=== PATIENT | female | born 1950 | race Caucasian/White ===

== ENCOUNTER 2016-08-21 14:33 | Emergency (ER) | payer OTHER ==
[~2016-08-21] VITALS: Ht 162.6 cm; Wt 66.8 kg
[~2016-08-21 14:33] MED LIST: ACTOS PO; ALDACTONE 25MG25 MG PO; ALLOPURINOL300 MG PO; ATENOLOL50 MG PO; AVAPRO300 M1 PO; CENTRUM SILVER1 TA1 PO; CIPRO 500MG TA500 MG PO; COLACE 100100 MG/CAP PO; DESYREL 100MG100 MG PO; FERROUS SU325 MG/TAB PO; GEMCOR600 MG PO; JANUVIA50 MG PO; LEVOTHYROXINE0.1 MG PO; MET PO; NORCO 325 MG-51 TAB PO; NORVASC 10MG10 MG PO; PAXIL 10MG10 MG PO; PERCOCET 325 MG1 TA2 PO; PRIL40 PO; PYRIDIUM200 M1 PO; SODIUM BICARB PO; SODIUM BICARBON1 POW; SYNTHROID 0.0.025 MG PO; VITAMIN B12 PO; VITAMINB INJ; VITRON C PO; XANAX 1MG1 MG PO; ZOFRAN 4MG T4 MG/TAB PO; ZOFRAN ODT4 MG PO; ZYLOPRIM 300MG300 MG PO
[2016-08-21 14:43] VITALS: TEMP 98.6
[2016-08-21 15:31] LABS: PH 5 (5-8); SQUAMOUS EPITHELIAL 0-2 /hpf; URINE APPEARANCE Clear; URINE BACTERIA None Seen /hpf; URINE BILIRUBIN Negative (NEGATIVE); URINE BLOOD 1+ (NEGATIVE); URINE COLOR Yellow; URINE GLUCOSE Negative (NEGATIVE); URINE KETONE Negative (NEGATIVE); URINE RBC 0-2 /hpf; URINE UROBILINOGEN Negative (NEGATIVE); URINE WBC 0-2 /hpf
[2016-08-21 15:41] LABS: BASO # 0.1 (0.0-0.2); BASO % 0.9 % (0.0-2.0); EOS # 0.4 (0.0-0.7); EOS % 4.6 % (0-4.0); GRAN # 5.3 (1.4-6.5); GRAN % 54.5 % (42.2-75.2); LYMPH # 3.3 (1.2-3.4); LYMPH % 33.7 % (20.0-51.0); MEAN CELL VOLUME 90 fl (80.0-100.0); MEAN CORPUSCULAR HGB CONC 31 g/dl (33.0-37.0); MEAN PLATELET VOLUME 12.2 fl (7.4-10.4); MONO # 0.6 (0.1-0.6); PLATELET COUNT 243 K/mm3 (130-400); RED BLOOD COUNT 3.63 M/mm3 (4.10-5.30); REDCELL DISTRIBUTION WIDTH-CV 12.8 % (11.5-14.5); WHITE BLOOD COUNT 9.6 K/mm3 (4.8-10.8)
[2016-08-21 15:43] LABS: HEMATOCRIT 32.8 % (37.0-47.0); HEMOGLOBIN 10.3 g/dl (12.5-16.0); MEAN CORPUSCULAR HEMOGLOBIN 28 pg (27.0-31.0)
[2016-08-21 15:48] LABS: ADJUSTED CALCIUM 8.6 mg/dL (8.4-10.2); BILIRUBIN,TOTAL 0.4 mg/dL (0.0-1.0); CALCIUM 8.6 mg/dL (8.4-10.2); CREATININE, serum 1.39 mg/dL (0.52-1.25); POTASSIUM 4.7 mmol/L (3.4-5.0); TOTAL PROTEIN 7.2 gm/dL (6.4-8.2)
[2016-08-21] MEDS ORDERED: ULTRAM 50MG TAB50 MG PO (16:22)
[2016-08-21] MEDS ORDERED: ZOFRAN8 MG PO (16:22)
[2016-08-21] MEDS ORDERED: PERCOCET 325 MG1 TA2 PO (16:22)
[2016-08-21] MEDS ORDERED: FLOMAX 0.40.4 MG/CAP PO (16:22)
[2016-08-21 16:47] VITALS: BP 137/62; PULSE 54
== END 2016-08-21 16:50 | disposition home or self-care (01) ==
LOC: COL.ER 14:33
PROVIDERS: Emergency Medicine
DX: N20.1 Calculus of ureter (principal); Z87.442 Personal history of urinary calculi
CPT/HCPCS: J1170; J1885; J2405; J7030

== ENCOUNTER → 2016-10-28 | Outpatient (CLI) | payer OTHER ==
[~2016-10-28] MED LIST changes: +FLOMAX 0.40.4 MG/CAP PO; +ULTRAM 50MG TAB50 MG PO; +ZOFRAN8 MG PO
== END ==
LOC: MC.RAD 14:00
DX: Z12.31 Encounter for screening mammogram for malignant neoplasm of breast (principal)

== ENCOUNTER 2017-01-27 10:57 | Inpatient (IN) | payer MEDICARE, OTHER ==
[~2017-01-27] VITALS: Ht 162.6 cm; Wt 63.5 kg
[2017-01-27 12:42] LABS: BASO # 0.1 (0.0-0.2); BASO % 0.6 % (0.0-2.0); EOS # 0.1 (0.0-0.7); EOS % 0.7 % (0-4.0); GRAN # 11.3 (1.4-6.5); LYMPH # 1.4 (1.2-3.4); LYMPH % 10.6 % (20.0-51.0); MEAN CELL VOLUME 92 fl (80.0-100.0); MEAN CORPUSCULAR HGB CONC 31 g/dl (33.0-37.0); MEAN PLATELET VOLUME 11.7 fl (7.4-10.4); MONO # 0.5 (0.1-0.6); MONO % 3.7 % (1.7-9.3); PLATELET COUNT 240 K/mm3 (130-400); RED BLOOD COUNT 3.71 M/mm3 (4.10-5.30); WHITE BLOOD COUNT 13.5 K/mm3 (4.8-10.8)
[2017-01-27 12:47] LABS: HEMOGLOBIN 10.5 g/dl (12.5-16.0); MEAN CORPUSCULAR HEMOGLOBIN 28 pg (27.0-31.0)
[2017-01-27 12:49] LABS: INR 1.1 (0.8-3.0); PROTHROMBIN TIME 13.3 SECONDS (9.7-12.8)
[2017-01-27 12:54] LABS: ADJUSTED CALCIUM 9.1 mg/dL (8.4-10.2); BILIRUBIN,TOTAL 0.7 mg/dL (0.0-1.0); CALCIUM 9.1 mg/dL (8.4-10.2); CREATININE, serum 1.37 mg/dL (0.52-1.25); POTASSIUM 5.2 mmol/L (3.4-5.0); TOTAL PROTEIN 6.8 gm/dL (6.4-8.2)
[2017-01-27 13:20] LABS: COLLECTION METHOD CLEAN CATCH
[2017-01-27 13:33] LABS: MUCOUS Present /lpf; PH 5 (5-8); SQUAMOUS EPITHELIAL 0-2 /hpf; URINE APPEARANCE Clear; URINE BACTERIA None Seen /hpf; URINE BILIRUBIN Negative (NEGATIVE); URINE BLOOD Negative (NEGATIVE); URINE COLOR Yellow; URINE GLUCOSE Negative (NEGATIVE); URINE KETONE Negative (NEGATIVE); URINE LEUKOCYTE ESTERASE Negative (NEGATIVE); URINE PROTEIN(semi-quant) Negative (NEGATIVE); URINE RBC 0-2 /hpf; URINE UROBILINOGEN Negative (NEGATIVE); URINE WBC 0-2 /hpf
[2017-01-27 14:14] VITALS: BP 163/53; PULSE 53; TEMP 98.7
[2017-01-27] MEDS ORDERED: SODIUM BICARBO650 MG PO (14:48)
[2017-01-27] MEDS ORDERED: ACULAR 10 ML10 ML OU (14:50)
[2017-01-27] MEDS ORDERED: PREDFORTE5ML (14:50)
[2017-01-27] MEDS ORDERED: LOPID 600M600 MG/TAB PO (14:51)
[2017-01-27 17:43] VITALS: BP 133/51; PULSE 55; TEMP 98.6
[2017-01-27 21:25] VITALS: BP 137/44; PULSE 86; TEMP 98.7
[2017-01-28] VITALS (12 sets, daily range): BP systolic 105–142; BP diastolic 37–65; PULSE 55–70; TEMP 57–98.8
[2017-01-28 06:53] LABS: BASO % 0.4 % (0.0-2.0); EOS # 0.7 (0.0-0.7); EOS % 6.8 % (0-4.0); GRAN # 6.6 (1.4-6.5); GRAN % 62.2 % (42.2-75.2); LYMPH # 2.4 (1.2-3.4); LYMPH % 22.5 % (20.0-51.0); MEAN CELL VOLUME 94 fl (80.0-100.0); MEAN CORPUSCULAR HGB CONC 31 g/dl (33.0-37.0); MEAN PLATELET VOLUME 12.4 fl (7.4-10.4); MONO # 0.8 (0.1-0.6); MONO % 7.8 % (1.7-9.3); PLATELET COUNT 229 K/mm3 (130-400); RED BLOOD COUNT 3.28 M/mm3 (4.10-5.30); WHITE BLOOD COUNT 10.6 K/mm3 (4.8-10.8)
[2017-01-28 06:57] LABS: HEMATOCRIT 30.8 % (37.0-47.0); HEMOGLOBIN 9.4 g/dl (12.5-16.0); MEAN CORPUSCULAR HEMOGLOBIN 29 pg (27.0-31.0)
[2017-01-28 06:59] LABS: CALCIUM 8.7 mg/dL (8.4-10.2); CREATININE, serum 1.89 mg/dL (0.52-1.25)
[2017-01-29 01:45] VITALS: BP 115/44; PULSE 61; TEMP 98
[2017-01-29 06:12] VITALS: BP 133/47; PULSE 79; TEMP 99.3
[2017-01-29 06:14] LABS: HEMATOCRIT 28.8 % (37.0-47.0); HEMOGLOBIN 8.7 g/dl (12.5-16.0)
[2017-01-29 10:11] VITALS: BP 159/50; PULSE 65; TEMP 98.8
[2017-01-29 13:07] VITALS: BP 161/52; PULSE 70; TEMP 98.1
[2017-01-29 17:11] VITALS: BP 138/46; PULSE 72; TEMP 97.4
[2017-01-29 21:53] VITALS: BP 148/52; BP 86/55; PULSE 58; TEMP 98.2
[2017-01-30 01:26] VITALS: BP 141/49; PULSE 62; TEMP 98
[2017-01-30 05:35] VITALS: BP 146/51; PULSE 58; TEMP 98.2
[2017-01-30 07:49] LABS: HEMATOCRIT 26.9 % (37.0-47.0); HEMOGLOBIN 8.3 g/dl (12.5-16.0)
[2017-01-30 09:30] VITALS: BP 120/42; PULSE 70; TEMP 97.6
[2017-01-30 17:41] VITALS: BP 132/56; PULSE 58; TEMP 98
[2017-01-30 21:59] VITALS: BP 127/48; PULSE 55; TEMP 98.5
[2017-01-31 05:16] VITALS: BP 150/52; PULSE 62; TEMP 98.5
[2017-01-31 07:40] LABS: HEMATOCRIT 29.2 % (37.0-47.0)
[2017-01-31 09:40] VITALS: BP 140/50; PULSE 55; TEMP 97.6
[2017-01-31] MEDS ORDERED: NORCO 325 MG-51 TAB PO (13:15)
[2017-01-31] MEDS ORDERED: XARELTO10 MG PO (13:15)
[2017-01-31] MEDS ORDERED: OS-CAL 500 + D1 TAB PO (13:16)
[2017-01-31 14:22] VITALS: BP 138/50; PULSE 55; TEMP 97.4
== END 2017-01-31 14:57 | DRG 481 ==
LOC: COL.ER 10:57 → SURG 12:36
PROVIDERS: Emergency Medicine; Orthopaedic Surgery; Physician Assistant
PROC: 0QH706Z Insertion of Intramedullary Internal Fixation Device into Left Upper Femur, Open Approach (ICD-10-PCS; principal; 2017-01-28 08:00)
DX: M80.052A Age-related osteoporosis with current pathological fracture, left femur, initial encounter for fracture (principal); D62 Acute posthemorrhagic anemia; W18.30XA Fall on same level, unspecified, initial encounter; I12.9 Hypertensive chronic kidney disease with stage 1 through stage 4 chronic kidney disease, or unspecified chronic kidney disease; E11.22 Type 2 diabetes mellitus with diabetic chronic kidney disease; N18.3 Chronic kidney disease, stage 3 (moderate); Z98.84 Bariatric surgery status; D50.0 Iron deficiency anemia secondary to blood loss (chronic)
CPT/HCPCS: 99232-AI; A9284; C1713; J0690; J1815; J2250; J2270; J2405; J2704; J7030

== ENCOUNTER 2017-01-31 14:22 | Inpatient (IN) | payer MEDICARE, OTHER ==
[~2017-01-31] VITALS: Ht 162.6 cm; Wt 68.6 kg
[~2017-01-31 14:22] MED LIST changes: +ACULAR 10 ML10 ML OU; +LOPID 600M600 MG/TAB PO; +OS-CAL 500 + D1 TAB PO; +PREDFORTE5ML; +SODIUM BICARBO650 MG PO; +XARELTO10 MG PO
[2017-01-31 15:12] VITALS: BP 146/54; PULSE 66; TEMP 98
[2017-01-31 17:01] VITALS: BP 146/54; PULSE 66; TEMP 98
[2017-02-01 05:05] VITALS: BP 136/51; PULSE 57; TEMP 98.2
[2017-02-01 18:00] VITALS: BP 145/59; PULSE 70; TEMP 98.4
[2017-02-02 04:45] VITALS: BP 136/52; PULSE 46; TEMP 97.9
[2017-02-02 16:44] VITALS: BP 123/49; PULSE 52; TEMP 98.2
[2017-02-03 05:55] VITALS: BP 143/42; PULSE 59; TEMP 98.2
[2017-02-03] MEDS ORDERED: XARELTO10 MG PO (08:50)
[2017-02-03] MEDS ORDERED: TYLENOL 325MG325 MG PO (08:52)
[2017-02-03] MEDS ORDERED: NORCO 325 MG-51 TAB PO (08:59)
[2017-02-03 16:07] VITALS: BP 129/47; PULSE 53; TEMP 98.2
[2017-02-04 06:20] VITALS: BP 124/47; PULSE 49; TEMP 98.5
== END 2017-02-04 10:35 | disposition home or self-care (01) | DRG 561 ==
DX: M80.052D Age-related osteoporosis with current pathological fracture, left femur, subsequent encounter for fracture with routine healing (principal); W18.30XD Fall on same level, unspecified, subsequent encounter; I12.9 Hypertensive chronic kidney disease with stage 1 through stage 4 chronic kidney disease, or unspecified chronic kidney disease; N18.3 Chronic kidney disease, stage 3 (moderate); E11.22 Type 2 diabetes mellitus with diabetic chronic kidney disease
CPT/HCPCS: 99222-AI; 99232-AI; 99239

== ENCOUNTER 2017-04-03 14:45 | Outpatient (RCR) | payer MEDICARE, OTHER ==
[~2017-04-03 14:45] MED LIST changes: +TYLENOL 325MG325 MG PO
== END 2017-05-10 ==
LOC: MKS.ESL.PT
DX: S72.002D Fracture of unspecified part of neck of left femur, subsequent encounter for closed fracture with routine healing (principal); Z98.890 Other specified postprocedural states
CPT/HCPCS: G0283-GP; G8978-GP; G8979-GP; G8980-GP

== ENCOUNTER 2017-06-25 23:06 | Emergency (ER) | payer MEDICARE, OTHER ==
[~2017-06-25] VITALS: Ht 162.6 cm; Wt 63.6 kg
[2017-06-25 23:08] VITALS: BP 172/77; TEMP 97
[2017-06-25 23:42] LABS: COLLECTION METHOD CLEAN CATCH
[2017-06-25 23:51] LABS: MUCOUS Present /lpf; PH 5 (5-8); SQUAMOUS EPITHELIAL 0-2 /hpf; URINE APPEARANCE Hazy; URINE BACTERIA None Seen /hpf; URINE BILIRUBIN Negative (NEGATIVE); URINE BLOOD 3+ (NEGATIVE); URINE COLOR Yellow; URINE GLUCOSE Negative (NEGATIVE); URINE KETONE Negative (NEGATIVE); URINE LEUKOCYTE ESTERASE Negative (NEGATIVE); URINE NITRATE Negative (NEGATIVE); URINE PROTEIN(semi-quant) 1+ (NEGATIVE); URINE RBC >50 /hpf; URINE UROBILINOGEN Negative (NEGATIVE)
[2017-06-26] MEDS ORDERED: NORCO 325 MG-51 TAB PO (02:00)
[2017-06-26 02:30] VITALS: PULSE 63
== END 2017-06-26 02:30 | disposition home or self-care (01) ==
LOC: COL.ER 23:06
PROVIDERS: Nurse Practitioner Primary Care
DX: N20.0 Calculus of kidney (principal); I10 Essential (primary) hypertension; E03.9 Hypothyroidism, unspecified; Z87.442 Personal history of urinary calculi; Z90.49 Acquired absence of other specified parts of digestive tract; Z98.84 Bariatric surgery status; Z79.52 Long term (current) use of systemic steroids
CPT/HCPCS: J2270; J7030

== ENCOUNTER → 2017-11-24 | Outpatient (CLI) | payer MEDICARE, OTHER | LOC: MC.RAD 13:18 | DX: Z12.31 Encounter for screening mammogram for malignant neoplasm of breast (principal) ==

== ENCOUNTER 2018-09-25 09:05 | Outpatient (CLI) | payer MEDICARE, OTHER ==
[~2018-09-25] VITALS: Ht 162.6 cm; Wt 67.4 kg
[2018-09-25 09:16] VITALS: BP 125/49; PULSE 52; TEMP 97.9
== END 2018-09-25 09:48 | disposition home or self-care (01) ==
LOC: EUO 09:05
DX: M81.0 Age-related osteoporosis without current pathological fracture (principal)
CPT/HCPCS: J0897

== ENCOUNTER → 2019-01-08 | Outpatient (CLI) | payer MEDICARE, OTHER | LOC: MC.RAD 09:45 | DX: Z12.31 Encounter for screening mammogram for malignant neoplasm of breast (principal) ==

== ENCOUNTER 2019-04-18 11:07 | Outpatient (CLI) | payer MEDICARE, OTHER ==
[~2019-04-18] VITALS: Ht 162.6 cm; Wt 70.3 kg
[2019-04-18 11:39] VITALS: BP 101/59; PULSE 59; TEMP 98.5
== END 2019-04-18 11:46 | disposition home or self-care (01) ==
LOC: EUO 11:07
DX: M81.0 Age-related osteoporosis without current pathological fracture (principal)
CPT/HCPCS: J0897

== ENCOUNTER 2019-10-22 09:46 | Outpatient (CLI) | payer MEDICARE, OTHER ==
[~2019-10-22] VITALS: Ht 162.6 cm; Wt 65.8 kg
[2019-10-22 10:04] VITALS: BP 129/72; PULSE 53; TEMP 98.1
== END 2019-10-22 10:49 | disposition home or self-care (01) ==
LOC: EUO 09:46
DX: M81.0 Age-related osteoporosis without current pathological fracture (principal)
CPT/HCPCS: J0897

== ENCOUNTER → 2020-02-20 | Outpatient (CLI) | payer MEDICARE, OTHER | LOC: MC.RAD 16:44 | DX: Z12.31 Encounter for screening mammogram for malignant neoplasm of breast (principal) ==

== ENCOUNTER 2020-04-24 15:38 | Outpatient (CLI) | payer MEDICARE, OTHER ==
[~2020-04-24] VITALS: Ht 162.6 cm; Wt 65.9 kg
[~2020-04-24 15:38] MED LIST changes: -PAXIL 10MG10 MG PO; +PAXIL40 MG PO
[2020-04-24 16:27] VITALS: BP 110/58; PULSE 67; TEMP 98
== END 2020-04-24 17:32 | disposition home or self-care (01) ==
LOC: EUO
DX: M81.0 Age-related osteoporosis without current pathological fracture (principal)
CPT/HCPCS: J0897

== ENCOUNTER 2020-10-30 16:09 | Outpatient (CLI) | payer MEDICARE, OTHER ==
[~2020-10-30] VITALS: Ht 162.6 cm; Wt 62.5 kg
[2020-10-30 16:21] VITALS: BP 171/62; PULSE 60; TEMP 97.8
== END 2020-10-30 16:42 | disposition home or self-care (01) ==
LOC: EUO 16:09
DX: M81.0 Age-related osteoporosis without current pathological fracture (principal)
CPT/HCPCS: J0897

== ENCOUNTER 2021-04-30 14:56 | Outpatient (CLI) | payer MEDICARE, OTHER ==
[~2021-04-30] VITALS: Ht 162.6 cm; Wt 67.0 kg
[2021-04-30] MEDS ORDERED: GLUCOPHAGE500 MG/TAB PO (15:09)
[2021-04-30 15:10] VITALS: BP 127/68; PULSE 60; TEMP 98
== END 2021-04-30 15:38 | disposition home or self-care (01) ==
LOC: EUO 14:56
DX: M81.0 Age-related osteoporosis without current pathological fracture (principal)
CPT/HCPCS: J0897

== ENCOUNTER 2021-06-29 15:06 | Inpatient (IN) | payer MEDICARE, OTHER ==
[~2021-06-29] VITALS: Ht 160 cm; Wt 65.9 kg
[~2021-06-29 15:06] MED LIST changes: +GLUCOPHAGE500 MG/TAB PO
[2021-06-29 16:41] LABS: BASO # 0.1 K/mm3 (0.0-0.2); BASO % 1.1 % (0.0-2.0); EOS # 0.6 K/mm3 (0.0-0.7); EOS % 5.2 % (0.0-4.0); GRAN # 7.8 K/mm3 (1.4-6.5); GRAN % 65.2 % (42.2-75.2); HEMATOCRIT 39.8 % (37.0-47.0); HEMOGLOBIN 12.9 g/dl (12.5-16.0); LYMPH # 2.7 K/mm3 (1.2-3.4); LYMPH % 22.4 % (20.0-51.0); MEAN CELL VOLUME 89 fl (80.0-100.0); MEAN CORPUSCULAR HEMOGLOBIN 29 pg (27-31); MEAN CORPUSCULAR HGB CONC 32 g/dl (33.0-37.0); MEAN PLATELET VOLUME 11.7 fl (7.4-10.4); MONO # 0.7 K/mm3 (0.1-0.6); MONO % 5.8 % (1.7-9.3); PLATELET COUNT 374 K/mm3 (130-400); RED BLOOD COUNT 4.45 M/mm3 (4.10-5.30); REDCELL DISTRIBUTION WIDTH-CV 14.8 % (11.5-14.5)
[2021-06-29 16:52] LABS: COLLECTION METHOD CLEAN CATCH
[2021-06-29 16:56] LABS: ALBUMIN 4.5 gm/dL (3.4-4.8); BILIRUBIN,TOTAL 0.4 mg/dL (0.2-1.2); CALCIUM 8.7 mg/dL (8.4-10.2); CREATININE, serum 1.85 mg/dL (0.57-1.11); POTASSIUM 4.2 mmol/L (3.5-4.5); TOTAL PROTEIN 8.8 gm/dL (6.2-8.1)
[2021-06-29 17:02] LABS: MUCOUS Present (NOT PRESENT); PH 5 (5-8); SQUAMOUS EPITHELIAL 0-2 /hpf (0-10); URINE APPEARANCE Hazy (CLEAR/HAZY); URINE BACTERIA Rare /hpf (NONE SEEN); URINE BILIRUBIN Negative (NEGATIVE); URINE BLOOD 3+ (NEGATIVE); URINE COLOR Yellow (YELLOW); URINE GLUCOSE Negative (NEGATIVE); URINE KETONE Negative (NEGATIVE); URINE LEUKOCYTE ESTERASE Negative (NEGATIVE); URINE NITRATE Negative (NEGATIVE); URINE PROTEIN(semi-quant) 1+ (NEGATIVE); URINE RBC >50 /hpf (0-2); URINE UROBILINOGEN Negative (NEGATIVE)
[2021-06-29 21:59] VITALS: BP 149/51; PULSE 52; TEMP 98
[2021-06-30 00:03] VITALS: BP 107/40; BP 116/42; PULSE 53; TEMP 97.7
--- NOTE | 2021-06-30 02:09 | NUR ---
PATIENT UP TO ROOM 349. ALERT AND ORIENTED. ASSESSMENT COMPLETED. PATIENT C/O MILD PAIN. PRN ORDER FOR MORPHINE GIVEN. PATIENT VOIDED CLEAR YELLOW URINE. IVF STARTED ALONG WITH IV ABX.
[2021-06-30 04:06] VITALS: BP 117/41; PULSE 51; TEMP 97.9
--- NOTE | 2021-06-30 04:54 | NUR ---
70 yo female admitted for further care and management of ureterolithiasis with possible sepsis of urinary source. ht 160 cm wt 65.9 kg SCr 1.85 with estimated CrCl ~25 ml/min half life 27.8 hr Plan: Will give an initial loading dose of vancomycin 1250 mg x1 (18.9 mg/kg); followed by a maintenance regimen of vancomycin 750 mg q24h to target a goal trough of 15-20 mcg/ml. Will follow patient's renal function, micro data, and vancomycin levels as indicated to assess for any necessary changes to regimen. Thank you for this dosing consult.
[2021-06-30 06:39] LABS: BILIRUBIN,TOTAL 0.3 mg/dL (0.2-1.2); CALCIUM 6.8 mg/dL (8.4-10.2); CREATININE, serum 1.46 mg/dL (0.57-1.11); TOTAL PROTEIN 5.8 gm/dL (6.2-8.1)
[2021-06-30 06:44] LABS: BASO # 0.1 K/mm3 (0.0-0.2); EOS # 0.7 K/mm3 (0.0-0.7); EOS % 6.6 % (0.0-4.0); GRAN # 5.5 K/mm3 (1.4-6.5); GRAN % 55.1 % (42.2-75.2); LYMPH % 29.8 % (20.0-51.0); MEAN CORPUSCULAR HGB CONC 31 g/dl (33.0-37.0); MEAN PLATELET VOLUME 11.8 fl (7.4-10.4); MONO # 0.7 K/mm3 (0.1-0.6); MONO % 7.3 % (1.7-9.3); PLATELET COUNT 297 K/mm3 (130-400); REDCELL DISTRIBUTION WIDTH-CV 14.6 % (11.5-14.5)
[2021-06-30 07:02] LABS: THYROID STIMULATING HORMONE 0.814 uIU/mL (0.350-4.940)
[2021-06-30 07:05] LABS: HEMOGLOBIN 9.5 g/dl (12.5-16.0); MEAN CELL VOLUME 94 fl (80.0-100.0); MEAN CORPUSCULAR HEMOGLOBIN 29 pg (27-31)
[2021-06-30 07:06] VITALS: BP 120/45; PULSE 57; TEMP 98.4
[2021-06-30 08:27] VITALS: BP 136/46; PULSE 51; TEMP 98.3
--- NOTE | 2021-06-30 11:24 | NUR ---
Ana: No christian preference Situation: [employer] stopped by room on rounds Background: PT has had a hard year. Lost her son in February and other tragedies. Assessment: PT doesn't feel like she can catch a break. [employer] talked with her for awhile. She appreciated the visit. Recommendation: [employer] will follow up as needed
[2021-06-30 11:55] VITALS: BP 136/46; PULSE 51; TEMP 98.3
--- NOTE | 2021-06-30 13:01 | NUR ---
Pt has voided and passed a stone. Notified OR and Dr Dick
--- NOTE | 2021-06-30 14:39 | NUR ---
Child Protective Services Social Worker met with patient to discuss discharge plan. Patient lives alone in [place] and sees Dr. Mccord for primary care. Patient obtains medications from [facility] with no difficulties and does not use any DME at home. Patient is independent with ADLS and plans to return home at time of discharge. Patient is a and her only child in February. Patient reports her brother, Sreekanth is her legal next of kin. Discharge Plan: Home
--- NOTE | 2021-06-30 15:30 | NUR ---
Dr Dick up to see pt, new orders wrote. Pt aware that she an eat and is currently ordering something to eat. Dr iDck will be back in to see pt later on today for possible discharge
[2021-06-30 15:37] VITALS: BP 143/48; PULSE 51; TEMP 98.3
[2021-06-30] MEDS ORDERED: OMNICEF 300MG300 MG PO (16:46)
[2021-06-30] MEDS ORDERED: ZOFRAN ODT4 MG PO (16:47)
[2021-06-30] MEDS ORDERED: ROXICODONE 55 MG/TAB PO (16:47)
--- NOTE | 2021-06-30 18:55 | NUR ---
Reviewed discharge instructions with pt to include her making the follow up appointment. Discussed pain medication as well as the antibiotic to include side affects. INT removed from left forarm/wrist and pt escorted out.
== END 2021-06-30 18:57 | disposition home or self-care (01) | DRG 872 ==
LOC: COL.ER 15:06 → SURG 19:45
PROVIDERS: Physician Assistant; ADMIT Internal Medicine
DX: A41.9 Sepsis, unspecified organism (principal); E87.2 Acidosis; N18.4 Chronic kidney disease, stage 4 (severe); I12.9 Hypertensive chronic kidney disease with stage 1 through stage 4 chronic kidney disease, or unspecified chronic kidney disease; N13.2 Hydronephrosis with renal and ureteral calculous obstruction; N17.9 Acute kidney failure, unspecified; E11.22 Type 2 diabetes mellitus with diabetic chronic kidney disease; E03.9 Hypothyroidism, unspecified; Z79.84 Long term (current) use of oral hypoglycemic drugs; Z90.49 Acquired absence of other specified parts of digestive tract
CPT/HCPCS: OP; 99233-AI; 99239; G0378; J0696; J2185; J2270; J3370; J7030; J7050

== ENCOUNTER 2021-11-01 15:55 | Outpatient (CLI) | payer MEDICARE, OTHER ==
[~2021-11-01] VITALS: Ht 160 cm; Wt 68.9 kg
[~2021-11-01 15:55] MED LIST changes: +OMNICEF 300MG300 MG PO; +ROXICODONE 55 MG/TAB PO
[2021-11-01 16:15] VITALS: BP 149/76; PULSE 53; TEMP 97.8
[2021-11-01] MEDS ORDERED: SODIUM BICARBO650 MG PO (16:29)
[2021-11-01] MEDS ORDERED: GLUCOPHAGE XR500 M1 PO (16:29)
[2021-11-01] MEDS ORDERED: SYNTHROID0.1 MG/TAB PO (16:29)
[2021-11-01] MEDS ORDERED: NORVASC 5MG5 MG/TAB PO (16:30)
[2021-11-01] MEDS ORDERED: AVAPRO TAB150 MG/TAB PO (16:30)
== END 2021-11-01 16:35 | disposition home or self-care (01) ==
LOC: EUO 15:55
DX: M81.0 Age-related osteoporosis without current pathological fracture (principal)
CPT/HCPCS: J0897

== ENCOUNTER 2022-05-03 15:51 | Outpatient (CLI) | payer MEDICARE, OTHER ==
[~2022-05-03] VITALS: Ht 160 cm; Wt 68.0 kg
[~2022-05-03 15:51] MED LIST changes: +AVAPRO TAB150 MG/TAB PO; +GLUCOPHAGE XR500 M1 PO; +NORVASC 5MG5 MG/TAB PO; +SYNTHROID0.1 MG/TAB PO
[2022-05-03 16:11] VITALS: BP 148/75; PULSE 49; TEMP 98.1
[2022-05-03] MEDS ORDERED: PROLIA60 MG/ML SQ (16:16)
--- NOTE | 2022-05-03 16:34 | NUR ---
Pt exits dept with steady gait. She tolerated injection well.
== END 2022-05-03 16:34 | disposition home or self-care (01) ==
LOC: EUO 15:51
DX: M81.0 Age-related osteoporosis without current pathological fracture (principal)
CPT/HCPCS: J0897

== ENCOUNTER 2023-11-30 13:00 | Outpatient (CLI) | payer MEDICARE, OTHER ==
[~2023-11-30] VITALS: Ht 160 cm; Wt 63.0 kg
[~2023-11-30 13:00] MED LIST changes: +PROLIA60 MG/ML SQ
[2023-11-30 13:15] VITALS: BP 115/72; PULSE 57; TEMP 98.2
[2023-11-30] MEDS ORDERED: Denosumab 60 MG/ML SYRINGE SQ ONE (13:30)
== END 2023-11-30 13:27 ==
LOC: EUO 13:00
DX: M81.0 Age-related osteoporosis without current pathological fracture (principal)
CPT/HCPCS: J0897